=== PATIENT | female | born 1950 | race Caucasian/White ===

== ENCOUNTER 2022-04-26 14:54 | Emergency (ER) | payer MEDICARE, SELFPAY ==
[2022-04-26 15:02] VITALS: BP 150/73; PULSE 53; RESP 20; TEMP 36.4; O2SAT 92; BMI 34.9
--- NOTE | 2022-04-26 15:07 | XRR_ITS ---
PROCEDURE INFORMATION: Exam: XR Left Ankle Exam date and time: 04/26/2022 3:47 PM Age: 72 years old Clinical indication: Injury or trauma; Fall; Sprain or strain; Ankle; Left TECHNIQUE: Imaging protocol: Radiologic exam of the left ankle. Views: 3 or more views. COMPARISON: No relevant prior studies available. FINDINGS: Bones/joints: Osseous structures are intact. No fracture or malalignment. Visualized joint surfaces are preserved. Soft tissues: Unremarkable. XR/XR ankle LT min 3V* [id number] IMPRESSION: Negative exam. No acute bony abnormalities.
--- NOTE | 2022-04-26 17:13 | ED_ITS ---
HPI - Fall General: Chief Complaint: Fall Stated Complaint: Left ankle injury Time Seen by Provider: 04/26/22 17:07 History of Present Illness: 72-year-old female comes in today for complaints of injury to the left ankle. Patient was walking up a ramp this morning when her ankle slipped causing her to turn it. Since then patient has had increased difficulty of ambulating on it due to pain. No obvious deformity is noted and minimal swelling is noted. Patient has had prior injury to the ankle. Patient appears nontoxic. Patient appears in no pain at rest. Associated symptoms-after fall: Denies chest pain Review of Systems General: Reports: 10 or more systems reviewed and unremarkable except in HPI and below Const: Denies: fever(s) Card: Denies: chest pain Resp: Denies: dyspnea GI: Denies: vomiting Musc: Reports: extremity pain and joint pain Skin/Breast: Denies: rash Physical Exam Const: COMMON NORMALS: alert HENMT: COMMON NORMALS: normocephalic HEAD & SCALP: normocephalic Neck/C-Spine: COMMON NORMALS: full ROM Resp: COMMON NORMALS: normal respiratory effort Cardio: COMMON NORMALS: regular rate RATE: regular rate Back/Pelvis: COMMON NORMALS: thoracic and lumbar spine normal to inspection Extremity: LEFT LOWER EXTREMITY: Yes ankle joint (Anterior swelling and tenderness.) Left ankle: Yes inspection and Yes palpation Neuro: SENSORIUM/ORIENTATION: Yes alert Skin: COMMON NORMALS: turgor normal GENERAL SKIN EXAM: turgor normal Course Vital Signs: Vital signs: Vital Signs Temperature 97.6 F 04/26/22 15:02 Pulse Rate 53 L 04/26/22 15:02 Respiratory Rate 20 H 04/26/22 15:02 Blood Pressure 150/73 04/26/22 15:02 Pulse Oximetry 92 04/26/22 15:02 Oxygen Delivery Me thod 04/26/22 15:02 MDM - Fall Medical Decision Making 72-year-old female comes in today for complaints of injury of the left ankle after falling this morning with the. Patient reports slipping on a ramp while going up it. On exam patient has some anterior swelling and tenderness to the left ankle. No obvious deformity or dislocation is noted. Differential diagnosis includes but not limited to sprain, fracture, dislocation. X-ray noted no abnormalities except some osteoarthritis. Reviewed exam with patient with recommendations for treatment and follow-up. Patient reported understanding. Lab Data Radiology Impressions Ankle X-Ray 04/26/22 15:07 IMPRESSION: Negative exam. No acute bony abnormalities. Discharge Plan Discharge Patient Disposition: Home Clinical Impression: Sprained ankle Qualifiers: Encounter type: initial encounter Involved ligament of ankle: anterior talofibular ligament Laterality: left Qualified Code(s): S93.492A - Sprain of other ligament of left ankle, initial encounter Condition: Stable Discharge Orders: Discharge ED (Routine); Ordered 04/26/22 Ordered By: Paul Estrada Referrals: Mary Beth Henry DO [Primary Care Provider] - Discharge Diet: Usual diet Discharge Activity: Increase activity as tolerated Patient Instructions: Ankle Sprain (ED) Activity Restrictions/Additional Instructions: Activity as tolerated. Use elastic bandage or ankle support for comfort. Use acetaminophen and ibuprofen for pain. Use ice or heat for further pain relief. Follow-up with primary care in 1 week if no improvement is noted. Return to ED for new concerns. Coding Level of Care Code ED Plant Attendant Or Assistant Operator for Maricruz Umanzor
== END 2022-04-26 17:22 | disposition home or self-care (01) ==
PROVIDERS: Emergency Provider Nurse Practitioner Family; PCP Family Medicine
DX: S93.492A Sprain of other ligament of left ankle, initial encounter (principal); X50.1XXA Overexertion from prolonged static or awkward postures, initial encounter
CPT/HCPCS: 73610; 99283